=== PATIENT | male | born 1935 | race Caucasian/White ===

== ENCOUNTER 2018-09-02 14:31 | Emergency (ER) | payer MEDICARE ==
[~2018-09-02] VITALS: Ht 182.9 cm; Wt 86.2 kg
[2018-09-02 15:14] LABS: BASOPHILS ABSOLUTE AUTO 0.07 K/mm3 (0.00-0.23); BASOPHILS PERCENT AUTO 0 % (0-2); EOSINOPHILS ABSOLUTE AUTO 0.24 K/mm3 (0.00-0.68); EOSINOPHILS PERCENT AUTO 1 % (0-6); Hematocrit 34.4 % (37.0-53.0); Hemoglobin 11.2 g/dL (13.5-17.5); IMMATURE GRAN ABSOLUTE AUTO 0.07 K/mm3 (0.00-0.10); IMMATURE GRAN PERCENT AUTO 0 % (0-1); LYMPHOCYTES ABSOLUTE AUTO 1.44 K/mm3 (0.84-5.20); LYMPHOCYTES PERCENT AUTO 9 % (21-46); MONOCYTES ABSOLUTE AUTO 3.07 K/mm3 (0.16-1.47); MONOCYTES PERCENT AUTO 19 % (4-13); Mean Corpuscular HGB 31.1 pg (26.0-34.0); Mean Corpuscular HGB Conc 32.6 g/dL (31.5-36.5); Mean Corpuscular Volume 96 fL (80-100); Mean Platelet Volume 9.5 fL (9.1-12.4); NEUTROPHILS ABSOLUTE AUTO 11.74 K/mm3 (1.96-9.15); NEUTROPHILS PERCENT AUTO 71 % (41-73); Platelet Count 366 K/mm3 (150-400); RDW Coefficient Variation 14.1 % (11.7-14.2); RDW Standard Deviation 49.7 fL (35.1-46.3); White Blood Cell Count 16.63 K/mm3 (4.00-11.30)
[2018-09-02 15:35] LABS: Alanine Aminotransfer (ALT/SGP 31 U/L (12-78); Albumin, Blood 3.3 g/dL (3.4-5.0); Albumin/Globulin Ratio 0.9 (0.8-1.8); Alk Phos 74 U/L (50-136); Anion Gap 6 mmol/L (6-16); Aspartate Aminotrans (AST/SGOT 13 U/L (12-37); Bilirubin, Total 0.5 mg/dL (0.1-1.0); Blood Urea Nitrogen 35 mg/dL (8-24); Bun/Creatinine Ratio 20.5 (12.0-20.0); CO2, Blood 24 mmol/L (21-32); Calcium, Blood 8.3 mg/dL (8.5-10.1); Chloride, Blood 109 mmol/L (98-108); Creatinine, Blood 1.71 mg/dL (0.60-1.20); Ethanol (Alcohol), Blood, Med <3 mg/dL; Globulin, Blood 3.8 g/dL (2.2-4.0); Glomerular Filtration Rate 41 (60-); Glucose, Blood 105 mg/dL (70-99); Potassium, Blood 4.2 mmol/L (3.5-5.5); Sodium, Blood 139 mmol/L (136-145); Total Protein, Blood 7.1 g/dL (6.4-8.2)
[2018-09-02 15:38] LABS: International Normalized Ratio 1.01; Prothrombin Time Results 10.7 Sec (9.7-11.5)
[2018-09-02] MEDS ORDERED: LO-DOSE ASPIRIN81 MG PO (16:15)
[2018-09-02] MEDS ORDERED: ALBU90OI6 INH (16:15)
[2018-09-02 16:16] LABS: Source, Urine Catheter
[2018-09-02 16:33] LABS: Appearance, Urine Cloudy (Clear); Bilirubin, Urine Neg (Neg); Blood, Urine 2+ (Neg); Color, Urine Yellow (P-Yellow); Glucose Qualitative, Urine Neg (Neg); Ketones, Urine 1+ (Neg); Leukocyte Esterase, Urine 3+ (Neg); Nitrite, Urine Neg (Neg); Protein, Urine 2+ (Neg); Urobilinogen, Urine NORM (Normal)
[2018-09-02 17:07] LABS: Squamous Epithelial Cells Not Seen /hpf (Few); White Blood Cells, Urine TNTC /hpf (0-5)
[2018-09-02 17:08] LABS: Bacteria Many /hpf
[2018-09-02] MEDS ORDERED: CEPH500 PO (17:42)
== END 2018-09-02 18:10 | disposition home or self-care (01) ==
LOC: ER 14:31
PROVIDERS: Physician Assistant
DX: N39.0 Urinary tract infection, site not specified (principal); K59.00 Constipation, unspecified; D72.829 Elevated white blood cell count, unspecified; N18.3 Chronic kidney disease, stage 3 (moderate); R91.8 Other nonspecific abnormal finding of lung field; Z79.82 Long term (current) use of aspirin
CPT/HCPCS: 36415; 70450; 74176; 80053; 81001; 83880; 85025; 85610; 87077; 87086; 87186; 93005; 93010; 96365; 99284-25; G0480; J0696

== ENCOUNTER 2019-10-17 16:17 | Inpatient (IN) | payer MEDICARE ==
[~2019-10-17] VITALS: Ht 188 cm; Wt 89.1 kg
[~2019-10-17 16:17] MED LIST: ALBU90OI6 INH; ASPIR 8181 M1 PO; CEPH500 PO
[2019-10-17 16:43] LABS: Hematocrit 31.6 % (37.0-53.0); Hemoglobin 9.7 g/dL (13.5-17.5); Mean Corpuscular HGB 30.1 pg (26.0-34.0); Mean Corpuscular HGB Conc 30.7 g/dL (31.5-36.5); Mean Corpuscular Volume 98 fL (80-100); Mean Platelet Volume 10.2 fL (9.1-12.4); Platelet Count 298 K/mm3 (150-400); RDW Coefficient Variation 14.6 % (11.7-14.2); RDW Standard Deviation 53.8 fL (35.1-46.3); Red Blood Cell Count 3.22 M/mm3 (4.30-5.90); White Blood Cell Count 18.03 K/mm3 (4.00-11.30)
[2019-10-17 16:58] LABS: Albumin, Blood 3.3 g/dL (3.4-5.0); Albumin/Globulin Ratio 0.9 (0.8-1.8); Bilirubin, Total 0.4 mg/dL (0.1-1.0); Bun/Creatinine Ratio 16.3 (12.0-20.0); Calcium, Blood 6.6 mg/dL (8.5-10.1); Creatinine, Blood 2.15 mg/dL (0.60-1.20); Globulin, Blood 3.5 g/dL (2.2-4.0); Magnesium, Blood 2.2 mg/dL (1.6-2.4); Potassium, Blood 5.2 mmol/L (3.5-5.5); Total Protein, Blood 6.8 g/dL (6.4-8.2)
[2019-10-17 17:16] LABS: Creatine Kinase MB Index 0.8 (0.0-4.0)
[2019-10-17 17:18] LABS: BASOPHILS ABSOLUTE MAN 0.54 K/mm3 (0.00-0.23); BASOPHILS PERCENT MAN 3 % (0-2); EOSINOPHILS ABSOLUTE MAN 0.36 K/mm3 (0.00-0.68); EOSINOPHILS PERCENT MAN 2 % (0-6); LYMPHOCYTES ABSOLUTE MAN 0.72 K/mm3 (0.84-5.20); LYMPHOCYTES PERCENT MAN 4 % (21-46); MONOCYTES ABSOLUTE MAN 1.98 K/mm3 (0.16-1.47); MONOCYTES PERCENT MAN 11 % (4-13); NEUTROPHILS ABSOLUTE MAN 14.42 K/mm3 (1.96-9.15); SEG NEUTROPHILS PERCENT MAN 80 % (41-73); TOTAL CELLS COUNTED 100
[2019-10-17 18:04] LABS: Source, Urine Clean Catch
[2019-10-17 18:08] LABS: Bilirubin, Urine Neg (Neg); Blood, Urine 4+ (Neg); Glucose Qualitative, Urine Neg (Neg); Ketones, Urine 2+ (Neg); Leukocyte Esterase, Urine 3+ (Neg); Nitrite, Urine Neg (Neg); Protein, Urine 2+ (Neg); Urobilinogen, Urine NORM (Normal); pH, Urine 6.5 (5.0-8.0)
[2019-10-17 18:11] LABS: Appearance, Urine Cloudy (Clear); Color, Urine Yellow (P-Yellow)
[2019-10-17 18:13] LABS: Bacteria Many /hpf; Mucus Light (0-Heavy); Squamous Epithelial Cells Few /hpf (Few)
[2019-10-17] MEDS ORDERED: PANTOPRAZOLE SO40 M2 PO (18:19)
[2019-10-17] MEDS ORDERED: MAGNESIUM GLU27.5 M1 PO (18:47)
[2019-10-17] MEDS ORDERED: Vitamin D2000 UNIT PO (18:47)
[2019-10-17] MEDS ORDERED: FLOVENT HFA12 GM INH (18:49)
--- NOTE | 2019-10-17 21:47 | NUR ---
FIELD START IV OF RIGHT AC. FLUSHES WELL
--- NOTE | 2019-10-17 22:12 | NUR ---
84 YR OLD MALE ADMITTED TO FLOOR FROM THE ED WITH DX OF SEPSIS DUE TO UTI AND WEAKNESS. RN REPORTED PT WAS FOUND DOWN AT HOME AFTER FALL - POSSIBLY FOR 2 DAYS DOWN. HICKS DRAINING. ALERT AND ORIENTED. DENIES PAIN WHEN ASKED. NEURO CHECKS ORDERED, WNL AT THIS TIME, ONESIMO, CONCESSION SUPERVISOR, PLANTAR AND DORSI FLEXION EQUAL. DENIES DECREASED SENSATION OF ANY PARTS OF BODY. CALL LIGHT IN REACH. INSTRUCTRED TO REMAIN IN BED, USE CALL LIGHT IF NEEDS ARRISE. RAILS UP X 3.
--- NOTE | 2019-10-18 01:11 | NUR ---
NEURO CHECKS DONE, NO NOTED DEFECEIT OF RIGHT VS LEFT SIDES, DENIED DECREASED SENSATION OF ALL 4 EXT. ACCOUNT MAINTENANCE REPRESENTATIVE EQUAL, BILATERAL DORSIFLEXION AND PLANTAR FLEXION EQUAL AND STRONE. ONESIMO. ALERT AND ORIENTED X 4. CALL LIGHT IN REACH. WILL CONTINUE TO MONITOR.
--- NOTE | 2019-10-18 04:15 | NUR ---
SHIFT SUMMARY 84 YR OLD MALE ADMITTED TO FLOOR WITH DX SEPSIS DUE TO UTI, WAS FOUND DOWN X 2 DAYS POST FALL AT HOME. NEURO CHECKS DONE. DENIED LOSS OF FEELING X 2 PREVIOUS CHECKS, BUT THIS CHECK, PT SAID HE HAD "MORE FEELING" IN HIS RIGHT LEG THAN BEFORE. WHEN ASKED TO EXPLAIN, HE ALSO SAID HIS RIGHT LEG WAS "BOUNCING" AT INTERVALS. NO NOTED SAID MOVEMENT UPON THIS ASSESSMENT. 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 CALL LIGHT IN REACH. WILL CONTINUE TO MONITOR
[2019-10-18 06:00] LABS: BASOPHILS ABSOLUTE AUTO 0.07 K/mm3 (0.00-0.23); BASOPHILS PERCENT AUTO 1 % (0-2); EOSINOPHILS ABSOLUTE AUTO 0.96 K/mm3 (0.00-0.68); EOSINOPHILS PERCENT AUTO 8 % (0-6); Hematocrit 28.7 % (37.0-53.0); Hemoglobin 8.9 g/dL (13.5-17.5); IMMATURE GRAN ABSOLUTE AUTO 0.05 K/mm3 (0.00-0.10); IMMATURE GRAN PERCENT AUTO 0 % (0-1); LYMPHOCYTES ABSOLUTE AUTO 1.14 K/mm3 (0.84-5.20); LYMPHOCYTES PERCENT AUTO 9 % (21-46); MONOCYTES ABSOLUTE AUTO 2.63 K/mm3 (0.16-1.47); MONOCYTES PERCENT AUTO 22 % (4-13); Mean Corpuscular HGB 30.4 pg (26.0-34.0); Mean Corpuscular Volume 98 fL (80-100); Mean Platelet Volume 10.3 fL (9.1-12.4); NEUTROPHILS PERCENT AUTO 60 % (41-73); Platelet Count 241 K/mm3 (150-400); RDW Coefficient Variation 14.9 % (11.7-14.2); Red Blood Cell Count 2.93 M/mm3 (4.30-5.90); White Blood Cell Count 12.25 K/mm3 (4.00-11.30)
[2019-10-18 06:14] LABS: Calcium, Blood 6.8 mg/dL (8.5-10.1); Magnesium, Blood 2.4 mg/dL (1.6-2.4); Potassium, Blood 4.8 mmol/L (3.5-5.5)
--- NOTE | 2019-10-18 12:17 | NUR ---
HICKS REMOVED. SPOKE WITH DR. BEAVERS ABOUT PT HICKS. ORDERED TO DC HICKS NOW. WILL CONTINUE TO MONITOR.
--- NOTE | 2019-10-18 12:30 | NUR ---
STRAIGHT CATH PT CONFIRMED THAT HE STRAIGHT CATHS 2-[address] BEAVERS NOTIFIED & ORDERED TO STRAIGHT CATH FOR POST VOID RESIDUAL OVER 300.
--- NOTE | 2019-10-18 16:54 | NUR ---
Initial spiritual care note: Mr. Casillas was short with ihs answers and denied concerns. He told me he's here b/c he "fell" and knows he will probably need to "get someone to help me at home." He appeared irritated about this. He is satisfied with his full code status and said he is active in his [employer] dar[facility]. However, he declined prayer at this time. I will remain available.
--- NOTE | 2019-10-18 17:55 | NUR ---
SHIFT SUMMARY. PT HICKS REMOVED THIS SHIFT. PT YET TO VOID. BLADDER SCAN VOLUME REVEALED 123. PT ENCOURAGED TO DRINK MORE FLUIDS. PT UP IN CHAIR MOST THE SHIFT. BACK IN BED AFTER AMBULATING THIS AFTERNOON. NO OTHER ACUTE CHANGES IN ASSESSMENT AT THIS TIME. PT NORMALLY STRAIGHT CATHS HOME. VSS. WILL CONTINUE TO MONITOR UNTIL TURNOVER IS COMPLETE.
--- NOTE | 2019-10-19 03:17 | NUR ---
HAS BEEN RESTING QUIETLYU WITH INTERMITTENT INTERRUPTIONS FOR ASSESSMENTS. BLADDER SCANNED X 2, THE LAST ONE HAD 618 ML, NOTIFIED AND ORDERS OBTAINED TO STR8 CATH FOR OVER 350 CC. STR8 CATHED WITH ASEPTIC TECHNIQUE - 900 CC OBTAINED. NEURO CHECKS CONTINUE WITHOUT NOTED CHANGE. CALL LIGHT IN REACH
[2019-10-19 05:10] LABS: BASOPHILS ABSOLUTE AUTO 0.03 K/mm3 (0.00-0.23); BASOPHILS PERCENT AUTO 0 % (0-2); EOSINOPHILS ABSOLUTE AUTO 0.76 K/mm3 (0.00-0.68); EOSINOPHILS PERCENT AUTO 6 % (0-6); Hematocrit 26.9 % (37.0-53.0); Hemoglobin 8.3 g/dL (13.5-17.5); IMMATURE GRAN ABSOLUTE AUTO 0.06 K/mm3 (0.00-0.10); IMMATURE GRAN PERCENT AUTO 1 % (0-1); LYMPHOCYTES ABSOLUTE AUTO 1.29 K/mm3 (0.84-5.20); LYMPHOCYTES PERCENT AUTO 11 % (21-46); MONOCYTES ABSOLUTE AUTO 2.56 K/mm3 (0.16-1.47); MONOCYTES PERCENT AUTO 22 % (4-13); Mean Corpuscular HGB Conc 30.9 g/dL (31.5-36.5); Mean Corpuscular Volume 97 fL (80-100); Mean Platelet Volume 10.5 fL (9.1-12.4); NEUTROPHILS ABSOLUTE AUTO 7.15 K/mm3 (1.96-9.15); NEUTROPHILS PERCENT AUTO 60 % (41-73); Platelet Count 228 K/mm3 (150-400); RDW Coefficient Variation 14.6 % (11.7-14.2); RDW Standard Deviation 52.4 fL (35.1-46.3); Red Blood Cell Count 2.77 M/mm3 (4.30-5.90); White Blood Cell Count 11.85 K/mm3 (4.00-11.30)
[2019-10-19 05:34] LABS: Bun/Creatinine Ratio 19.1 (12.0-20.0); Calcium, Blood 7.6 mg/dL (8.5-10.1); Creatinine, Blood 1.88 mg/dL (0.60-1.20); Potassium, Blood 4.6 mmol/L (3.5-5.5)
--- NOTE | 2019-10-19 17:21 | NUR ---
NO ACUTE CHANGES TO PT. PT REQUIRES BLADDER SCAN Q6 . NO C/O OF PAIN, NVD. WORKED WITH PT. PT ALERT AND ORIENTED AND ABLE TO EXPRESS ANY NEEDS. CALL LIGHT WITHIN REACH.
--- NOTE | 2019-10-20 03:29 | NUR ---
SHIFT SUMMARY HAS BEEN RESTING QUIETLY WITH FEW INTERRUPTIONS. BLADDER SCANNING CONTINUES - SEE I AND O DOCUMENTATIONS FOR DETAILS. CALL LIGHT IN REACH. NEURO CHECKS UNCHANGED.
--- NOTE | 2019-10-20 04:56 | NUR ---
0445 bladder scan >389 ml. nasir ROCHE NOTIFIED.
[2019-10-20 05:38] LABS: BASOPHILS ABSOLUTE AUTO 0.04 K/mm3 (0.00-0.23); BASOPHILS PERCENT AUTO 0 % (0-2); EOSINOPHILS ABSOLUTE AUTO 0.81 K/mm3 (0.00-0.68); EOSINOPHILS PERCENT AUTO 7 % (0-6); Hematocrit 26.1 % (37.0-53.0); Hemoglobin 8.1 g/dL (13.5-17.5); IMMATURE GRAN ABSOLUTE AUTO 0.05 K/mm3 (0.00-0.10); IMMATURE GRAN PERCENT AUTO 0 % (0-1); LYMPHOCYTES ABSOLUTE AUTO 1.03 K/mm3 (0.84-5.20); LYMPHOCYTES PERCENT AUTO 9 % (21-46); MONOCYTES ABSOLUTE AUTO 2.45 K/mm3 (0.16-1.47); MONOCYTES PERCENT AUTO 20 % (4-13); Mean Corpuscular HGB 30.2 pg (26.0-34.0); Mean Corpuscular Volume 97 fL (80-100); Mean Platelet Volume 10.3 fL (9.1-12.4); NEUTROPHILS ABSOLUTE AUTO 7.63 K/mm3 (1.96-9.15); NEUTROPHILS PERCENT AUTO 64 % (41-73); Platelet Count 228 K/mm3 (150-400); RDW Coefficient Variation 14.4 % (11.7-14.2); RDW Standard Deviation 51.8 fL (35.1-46.3); Red Blood Cell Count 2.68 M/mm3 (4.30-5.90); White Blood Cell Count 12.01 K/mm3 (4.00-11.30)
[2019-10-20 06:14] LABS: Bun/Creatinine Ratio 19.3 (12.0-20.0); Calcium, Blood 7.8 mg/dL (8.5-10.1); Creatinine, Blood 1.92 mg/dL (0.60-1.20); Potassium, Blood 5.1 mmol/L (3.5-5.5)
[2019-10-20] MEDS ORDERED: Norco 5-325 Ta1 EACH PO (13:05)
[2019-10-20] MEDS ORDERED: MAGNESIUM GLU27.5 M1 PO (13:06)
[2019-10-20] MEDS ORDERED: PANT40 PO (13:06)
[2019-10-20] MEDS ORDERED: ASCO500 (13:07)
[2019-10-20] MEDS ORDERED: AZIT500 PO (13:07)
[2019-10-20] MEDS ORDERED: ACET325 PO (13:07)
[2019-10-20] MEDS ORDERED: AMOCLA875 PO (13:08)
[2019-10-20] MEDS ORDERED: BISA10S PR (13:08)
[2019-10-20] MEDS ORDERED: CALCIUM CARBON500 M1 PO (13:08)
[2019-10-20] MEDS ORDERED: PROBIOTIC PO (13:09)
[2019-10-20] MEDS ORDERED: FERSU300 PO (13:09)
[2019-10-20] MEDS ORDERED: ONDA4ODT MM (13:09)
--- NOTE | 2019-10-20 13:14 | NUR ---
PT TO DISCHARGE TO [facility]. REPORT CALLED TO [facility]. PT TO LEAVE WITH [facility].
== END 2019-10-20 13:38 | DRG 872 ==
LOC: ER 16:17 → MEDS 19:43 → ENPENDDIS 10-20 11:00 → MEDS 10-20 13:38
PROVIDERS: Emergency Medicine; ADMIT Family Medicine
DX: A41.9 Sepsis, unspecified organism (principal); N39.0 Urinary tract infection, site not specified; Z95.2 Presence of prosthetic heart valve; Z87.891 Personal history of nicotine dependence; E83.51 Hypocalcemia; N18.3 Chronic kidney disease, stage 3 (moderate)
CPT/HCPCS: 36415; 70450; 71045; 80048; 80053; 81001; 82550; 82553; 83605; 83735; 84484; 85025; 87077; 87086; 87186; 93005; 93010; 94640; 94760; 96365; 96367; 96375; 97116; 97162; 97166; 97530; 97535; 99285-25; A9270-GY; J0610; J0696; J1650; J3475; J7030

== ENCOUNTER 2021-05-02 11:26 | Emergency (ER) | payer MEDICARE ==
[~2021-05-02] VITALS: Ht 185.4 cm; Wt 84.8 kg
[~2021-05-02 11:26] MED LIST changes: +ACET325 PO; +AMOCLA875 PO; +ASCO500 PO; +AZIT500 PO; +BISA10S PR; +CALCIUM CARBON500 M1 PO; +FERSU300 PO; +FLOVENT HFA12 GM INH; +MAGNESIUM GLU27.5 M1 PO; +MIRALAX17 GM PO; +Norco 5-325 Ta1 EACH PO; +ONDA4ODT MM; +PANT40 PO; +PANTOPRAZOLE SO40 M2 PO; +PROBIOTIC PO; +Vitamin D2000 UNIT PO
[2021-05-02 12:59] LABS: Hematocrit 19.4 % (37.0-53.0); Hemoglobin 6.1 g/dL (13.5-17.5); Mean Corpuscular HGB 36.3 pg (26.0-34.0); Mean Corpuscular HGB Conc 31.4 g/dL (31.5-36.5); Mean Corpuscular Volume 116 fL (80-100); Mean Platelet Volume 10.1 fL (9.1-12.4); Platelet Count 510 K/mm3 (150-400); RDW Coefficient Variation 17.5 % (11.7-14.2); RDW Standard Deviation 73.2 fL (35.1-46.3); Red Blood Cell Count 1.68 M/mm3 (4.30-5.90); White Blood Cell Count 10.09 K/mm3 (4.00-11.30)
[2021-05-02 13:23] LABS: Albumin, Blood 2.9 g/dL (3.4-5.0); Albumin/Globulin Ratio 0.7 (0.8-1.8); Bilirubin, Total 0.3 mg/dL (0.1-1.0); Bun/Creatinine Ratio 27.1 (12.0-20.0); Calcium, Blood 7.4 mg/dL (8.5-10.1); Creatinine, Blood 2.36 mg/dL (0.60-1.20); Globulin, Blood 4.1 g/dL (2.2-4.0); Potassium, Blood 5.3 mmol/L (3.5-5.5)
[2021-05-02 13:32] LABS: BASOPHILS PERCENT MAN 3 % (0-2); EOSINOPHILS PERCENT MAN 2 % (0-6); LYMPHOCYTES PERCENT MAN 7 % (21-46); MONOCYTES ABSOLUTE MAN 1.51 K/mm3 (0.16-1.47); MONOCYTES PERCENT MAN 15 % (4-13); NEUTROPHILS ABSOLUTE MAN 7.36 K/mm3 (1.96-9.15); SEG NEUTROPHILS PERCENT MAN 73 % (41-73); TOTAL CELLS COUNTED 100
[2021-05-02 17:31] LABS: Source, Urine Catheter
[2021-05-02 17:37] LABS: Appearance, Urine Hazy (Clear); Bilirubin, Urine Neg (Neg); Blood, Urine 4+ (Neg); Color, Urine Yellow (P-Yellow); Glucose Qualitative, Urine Neg (Neg); Ketones, Urine Neg (Neg); Leukocyte Esterase, Urine 3+ (Neg); Nitrite, Urine Neg (Neg); Protein, Urine 3+ (Neg); Urobilinogen, Urine NORM (Normal)
[2021-05-02 17:40] LABS: Amorphous Heavy (0-Heavy); Bacteria Many /hpf; Mucus Light (0-Heavy); Red Blood Cells, Urine 50-100 /hpf (0-2); Squamous Epithelial Cells Few /hpf (Few); White Blood Cells, Urine 25-50 /hpf (0-5)
== END 2021-05-02 19:10 | disposition home or self-care (01) ==
LOC: ER 11:26
PROVIDERS: Emergency Medicine; Physician Assistant
DX: D64.9 Anemia, unspecified (principal); K21.9 Gastro-esophageal reflux disease without esophagitis; Z79.899 Other long term (current) drug therapy; Z87.891 Personal history of nicotine dependence
CPT/HCPCS: 36415; 36430; 80053; 81001; 85025; 86850; 86900; 86901; 86923; 87077; 87086; 87186; 93005; 93010; 99283-25; J7030; P9016

== ENCOUNTER 2022-02-20 01:27 | Emergency (ER) | payer OTHER, MEDICARE ==
[~2022-02-20] VITALS: Ht 185.4 cm; Wt 63.5 kg
[2022-02-20 01:51] LABS: BASOPHILS PERCENT AUTO 1 % (0-2); EOSINOPHILS ABSOLUTE AUTO 1.07 K/mm3 (0.00-0.68); EOSINOPHILS PERCENT AUTO 6 % (0-6); Hematocrit 32.5 % (37.0-53.0); Hemoglobin 10.2 g/dL (13.5-17.5); IMMATURE GRAN ABSOLUTE AUTO 0.13 K/mm3 (0.00-0.10); IMMATURE GRAN PERCENT AUTO 1 % (0-1); LYMPHOCYTES ABSOLUTE AUTO 2.86 K/mm3 (0.84-5.20); LYMPHOCYTES PERCENT AUTO 15 % (21-46); MONOCYTES PERCENT AUTO 21 % (4-13); Mean Corpuscular HGB 28.6 pg (26.0-34.0); Mean Corpuscular HGB Conc 31.4 g/dL (31.5-36.5); Mean Corpuscular Volume 91 fL (80-100); Mean Platelet Volume 11.1 fL (9.1-12.4); NEUTROPHILS ABSOLUTE AUTO 11.15 K/mm3 (1.96-9.15); NEUTROPHILS PERCENT AUTO 58 % (41-73); Platelet Count 336 K/mm3 (150-400); RDW Standard Deviation 52.7 fL (35.1-46.3); Red Blood Cell Count 3.57 M/mm3 (4.30-5.90); White Blood Cell Count 19.41 K/mm3 (4.00-11.30)
[2022-02-20 01:58] LABS: Prothrombin Time Results 10.5 Sec (9.7-11.5)
[2022-02-20 02:07] LABS: Albumin, Blood 2.9 g/dL (3.4-5.0); Albumin/Globulin Ratio 0.8 (0.8-1.8); Bilirubin, Total 0.2 mg/dL (0.1-1.0); Bun/Creatinine Ratio 16.9 (12.0-20.0); Calcium, Blood 9.9 mg/dL (8.5-10.1); Creatinine, Blood 4.31 mg/dL (0.60-1.20); Globulin, Blood 3.8 g/dL (2.2-4.0); Magnesium, Blood 1.9 mg/dL (1.6-2.4); Potassium, Blood 5.3 mmol/L (3.5-5.5); Thyroid Stimulating Hormone 2.43 uIU/mL (0.360-4.800); Total Protein, Blood 6.7 g/dL (6.4-8.2)
[2022-02-20 02:16] LABS: Source, Urine Foley catheter
[2022-02-20 02:18] LABS: Appearance, Urine Hazy (Clear); Bilirubin, Urine Neg (Neg); Blood, Urine 4+ (Neg); Color, Urine Yellow (P-Yellow); Glucose Qualitative, Urine Neg (Neg); Ketones, Urine Neg (Neg); Leukocyte Esterase, Urine 3+ (Neg); Nitrite, Urine Neg (Neg); Protein, Urine 3+ (Neg); Specific Gravity, Urine 1.005 (1.003-1.022); Urobilinogen, Urine NORM (Normal)
[2022-02-20 02:25] LABS: Red Blood Cells, Urine 0-2 /hpf (0-2); Squamous Epithelial Cells Rare /hpf (Few); White Blood Cells, Urine TNTC /hpf (0-5)
[2022-02-20 02:26] LABS: Bacteria Many /hpf
[2022-02-20] MEDS ORDERED: DECADRON6 M1 PO (06:53)
[2022-02-20] MEDS ORDERED: CEPH500 PO (07:49)
== END 2022-02-20 13:00 | disposition home or self-care (01) ==
LOC: ER 01:27
PROVIDERS: Student in an Organized Health Care Education/Training Program
DX: C79.31 Secondary malignant neoplasm of brain (principal); I63.89 Other cerebral infarction; G81.94 Hemiplegia, unspecified affecting left nondominant side; C91.10 Chronic lymphocytic leukemia of B-cell type not having achieved remission; N39.0 Urinary tract infection, site not specified; N18.30 Chronic kidney disease, stage 3 unspecified; K21.9 Gastro-esophageal reflux disease without esophagitis; Z99.3 Dependence on wheelchair; Z79.899 Other long term (current) drug therapy; Z87.891 Personal history of nicotine dependence
CPT/HCPCS: 70450; 80053; 81001; 83735; 84443; 85025; 85610; 93005; 93010; J0696; J1100; J2405; J7030